=== PATIENT | female | born 1980 | race Caucasian/White ===

== ENCOUNTER 2019-03-21 12:12 | Emergency (ER) | payer OTHER ==
[~2019-03-21] VITALS: Wt 72.8 kg
[2019-03-21] MEDS ORDERED: LORAZEPAM 0.5 MG TAB PO ONE (13:30)
[2019-03-21 14:30] VITALS: BP 138/84; PULSE 86; RESP 18
--- NOTE | 2019-03-21 14:35 | ERD ---
ER Documentation Chief Complaint Chief Complaint mid-CP, sob x6mo; interm w activity. "sharp". 0/10 now. hx heroin abuse HPI 38-year-old female percents the emergency department complaining of chest pain and shortness of breath that she states she has had for months. She states that while she was using heroin, she did not feel the chest pain, but now that she has been off to her when she states she feels it. She does state that she may have relapsed recently. She reports no fevers, chills, cough, hemoptysis, sputum production. Patient currently reports the shortness of breath as somewhat anxiety related. ROS All systems reviewed and are negative except as per history of present illness. Medications Home Meds No Active Prescriptions or Reported Meds Allergies Allergies: Coded Allergies: No Known Allergy (Unverified , 03/21/19) PMhx/Soc History of Surgery: Yes ( 2013) Anesthesia Reaction: No Hx Neurological Disorder: No Hx Respiratory Disorders: No Hx Cardiac Disorders: No Hx Psychiatric Problems: No Hx Miscellaneous Medical Probl: No Hx Alcohol Use: Yes Hx Substance Use: Yes (Heroin, 30 days sober, relapsed yesterday) Hx Tobacco Use: Yes Smoking Status: Current every day smoker Physical Exam Vitals Vital Signs Date Temp Pulse Resp B/P (MAP) Pulse Ox O2 O2 Flow FiO2 Time Delivery Rate 03/21/19 99.1 98 20 146/87 99 12:18 (106) Physical Exam GENERAL: The patient is well developed and appropriate for usual state of health in no apparent distress HEENT: Pupils equal, round, and reactive to light. EOMI. There is no scleral icterus. NECK: C-spine is soft and supple, there is no meningismus. There is no cervical lymphadenopathy. LUNGS: Clear to auscultation bilaterally. There are no rales, wheezes or rhonchi. HEART: Regular rate and rhythm, no murmurs, clicks, rubs or gallops. ABDOMEN: Soft, non-tender, non-distended. There are bowel sounds in all four quadrants. No rebound or guarding. EXTREMITIES: There is no peripheral cyanosis or edema. No focal swelling or erythema. NEURO: The patient moves all four extremities with 5/5 strength. Cranial nerves II - XII are intact. Normal gait. Alert and oriented SKIN: There is no apparent rash or petechiae. Evidence of drug abuse with no evidence of abscess. HEME/LYMPHATIC: There is no evidence of excessive bruising or lymphedema. PSYCHIATRIC: The patient appears anxious Result Diagram: 03/21/19 1317 03/21/19 1317 Results 24 hrs Laboratory Tests Test 03/21/19 13:17 White Blood Count 7.1 10^3/ul Red Blood Count 4.00 10^6/ul Hemoglobin 11.9 g/dl Hematocrit 34.2 % Mean Corpuscular Volume 85.5 fl Mean Corpuscular Hemoglobin 29.8 pg Mean Corpuscular Hemoglobin Concent 34.8 g/dl Red Cell Distribution Width 12.9 % Platelet Count 170 10^3/UL Mean Platelet Volume 9.6 fl Immature Granulocytes % 0.100 % Neutrophils % 54.0 % Lymphocytes % 35.8 % Monocytes % 9.2 % Eosinophils % 0.6 % Basophils % 0.3 % Nucleated Red Blood Cells % 0.0 /100WBC Immature Granulocytes # 0.010 10^3/ul Neutrophils # 3.8 10^3/ul Lymphocytes # 2.5 10^3/ul Monocytes # 0.7 10^3/ul Eosinophils # 0.0 10^3/ul Basophils # 0.0 10^3/ul Nucleated Red Blood Cells # 0.0 10^3/ul Sodium Level 140 mmol/L Potassium Level 3.6 mmol/L Chloride Level 106 mmol/L Carbon Dioxide Level 28 mmol/L Anion Gap 6 Blood Urea Nitrogen 11 mg/dl Creatinine 0.62 mg/dl Est Glomerular Filtrat Rate mL/min > 60 mL/min Glucose Level 99 mg/dl Calcium Level 8.9 mg/dl Troponin I < 0.012 ng/ml Current Medications Medications Dose Sig/Jase Start Time Status Last (Trade) Ordered Route PRN Stop Time Admin Dose Reason Admin Lorazepam 0.5 mg ONCE ONCE 03/21/19 DC 03/21/19 (Ativan) PO 13:30 13:20 03/21/19 13:31 Procedures/MDM Patient was taken to a room, seen and evaluated. Comfort measures were initiated. Diagnostic tests were ordered and reviewed. 3 LEAD RHYTHM STRIP: Normal sinus rhythm without ectopy EK lead EKG reviewed by myself: Normal Sinus Rhythm Normal [place] and intervals No ST elevation, depression, or T wave inversion Impression: Normal EKG RADIOLOGY: Reviewed with the radiologist REEVALUATION: Patient is remained comfortable and nontoxic-appearing [employer]ISION [employer]KIN-year-old female with a history of substance abuse presents with chronic chest pain shortness of breath. Her diagnostic work-up shows no evidence of acute cardiac, pulmonary, infectious concerns. She is overall clinical well-appearing and seems appropriate for outpatient care. Departure Diagnosis: Primary Impression: Anxiety Condition: Stable Patient Instructions: Anxiety Reaction Additional Instructions: See your doctor for follow-up as discussed. Take a copy of your test results, if appropriate, to this follow-up visit. See your doctor or return here if your symptoms do not improve as expected. At any time, please return to the emergency department for any change or worsening in her symptoms. BRENT EMERSON March 21, 2019 14:35
--- NOTE | 2019-03-23 14:43 | RADRPT ---
Vent Rate: 90 bpm RR Interval: 0 msec MS Interval: 158 msec QRS Duration: 88 msec QT Interval: 346 msec QTC Interval: 423 msec P-R-T [place]: 69 - 97 - 49 degrees Normal sinus rhythm Rightward axis Borderline ECG Electronically Signed By: [facility]
== END 2019-03-21 14:55 | disposition home or self-care (01) ==
LOC: E/R 12:12
DX: F41.9 Anxiety disorder, unspecified (principal); F17.210 Nicotine dependence, cigarettes, uncomplicated
CPT/HCPCS: 36415; 71045; 80048; 84484; 85025; 93005; Z7502; Z7610